=== PATIENT | male | born 1995 | race Caucasian/White ===

== ENCOUNTER 2018-11-19 15:32 | Emergency (ER) | payer OTHER ==
[~2018-11-19] VITALS: Ht 180.3 cm; Wt 72.6 kg
[2018-11-19 16:00] LABS: ABSOLUTE NEUTROPHILS 5.6 thou/uL (1.4-8.2); BASOPHILS 0.6 % (0.0-2.0); EOSINOPHILS 0.6 % (0.0-3.0); HEMOGLOBIN 13.7 gm/dL (14.0-18.0); LYMPHOCYTES 16.7 % (24.0-44.0); MCH 32.1 pg (26.0-34.0); MCHC 35.2 g/dL (28.0-37.0); MCV 91.1 fL (80.0-100.0); MONOCYTES 8.1 % (1.0-8.0); PLATELET COUNT 179 thou/uL (150-400); RBC 4.28 mil/uL (4.50-6.00); RDW 12.6 % (10.5-14.5); WBC 7.5 thou/uL (4.0-11.0)
[2018-11-19 16:07] LABS: CALCIUM 8.5 mg/dL (8.5-10.1); CREATININE 1.1 mg/dL (0.7-1.3); POTASSIUM 3.9 mmol/L (3.5-5.1)
[2018-11-19 16:14] LABS: ALBUMIN 4.2 g/dL (3.4-5.0); TOTAL BILIRUBIN 0.5 mg/dL (<0.1-1.0); TOTAL PROTEIN 6.9 g/dL (6.4-8.2)
[2018-11-19 18:08] VITALS: BP 100/52
--- NOTE | 2018-11-20 13:39 | EKG ---
[place] [address] [facility] [employer] [place] [address] ELECTROCARDIOGRAM REPORT Name: SEBASTIEN ROMERO Rosey Room #: [facility]P [facility] [id number] ������������������ Admission: 11/19/18 ������������������ Attend Phys: Discharge: 11/19/18 ������������������ Date of : [birth year] Report #: [id number] ����������������������������������������������������������������� [id number] THIS REPORT FOR: //name// [facility] ED Test Date: 2018-11-19 Test Time: 15:58:54 Pat Name: SEBASTIEN ROMERO Department: Room: Gender: M Driller Helper: KKODJOVI : 1995 Requested By: Valarie Frias Order Number: [id number] MD: Maurisio Valles Measurements Intervals [place] Rate: 76 P: -7 ND: 185 QRS: 44 QRSD: 86 T: 30 QT: 376 QTc: 423 Interpretive Statements Sinus rhythm RSR' in V1 or V2, probably normal variant No previous ECG available for comparison Electronically Signed On 11-20-2018 13:39:14 CDT by Maurisio Valles [email or web address] ��������������������������������������������� <ELECTRONICALLY SIGNED> ���������������������������������������� By: Maurisio Valles MD, [facility] ��������������������������������������������� 11/20/18 1339 [id number] 1558 Maurisio Valles MD, FACC /EPI
== END 2018-11-19 18:10 | disposition home or self-care (01) ==
LOC: ER 15:32
PROVIDERS: Physician Assistant
DX: R55 Syncope and collapse (principal); E86.0 Dehydration